=== PATIENT | female | born 1950 | race African-American/Black ===

== ENCOUNTER 2019-08-29 14:38 | Emergency (ER) | payer MEDICAID ==
[~2019-08-29] VITALS: Ht 175.3 cm; Wt 104.0 kg
[~2019-08-29 14:38] MED LIST: METF-414 PO
[2019-08-29 14:47] VITALS: BP 135/73
[2019-08-29] MEDS: ACETAMINOPHEN 325MG TABLET PO STA (15:45)
== END 2019-08-29 17:34 | disposition left against medical advice (07) ==
LOC: ER 14:38
DX: M25.512 Pain in left shoulder (principal); V49.49XA Driver injured in collision with other motor vehicles in traffic accident, initial encounter; Y93.89 Activity, other specified; Y92.89 Other specified places as the place of occurrence of the external cause; Y99.8 Other external cause status
CPT/HCPCS: 99282

== ENCOUNTER 2019-08-31 03:44 | Emergency (ER) | payer MEDICAID ==
[~2019-08-31] VITALS: Ht 175.3 cm; Wt 104.0 kg
[2019-08-31 06:18] VITALS: BP 125/75
== END 2019-08-31 06:29 | disposition home or self-care (01) ==
LOC: ER 03:44
DX: S16.1XXA Strain of muscle, fascia and tendon at neck level, initial encounter (principal); M79.605 Pain in left leg; M79.602 Pain in left arm; E11.9 Type 2 diabetes mellitus without complications; I10 Essential (primary) hypertension; Z90.49 Acquired absence of other specified parts of digestive tract; Z96.659 Presence of unspecified artificial knee joint; V49.88XA Car occupant (driver) (passenger) injured in other specified transport accidents, initial encounter; Y93.89 Activity, other specified; Y92.89 Other specified places as the place of occurrence of the external cause; Y99.8 Other external cause status
CPT/HCPCS: 93005; 99284